=== PATIENT | female | born 1990 | race American Indian/Alaskan Native ===

== ENCOUNTER 2016-09-28 12:15 | Emergency (ER) | payer SELFPAY ==
[2016-09-28 13:04] VITALS: BP 102/61
--- NOTE | 2016-09-28 15:28 | XRay Report ---
FINAL REPORT EXAM: XR ANKLE 3 RT HISTORY: injury to right ankle TECHNIQUE: AP, lateral, and oblique views of the right ankle PRIORS: None. FINDINGS: There is no evidence for acute fracture or dislocation. There is mild soft tissue swelling over the lateral malleolus. No radiopaque foreign bodies are seen. The ankle mortise is intact. Bony mineralization is normal and joint spaces are maintained. IMPRESSION: No acute bony abnormality noted. Mild soft tissue swelling over the lateral malleolus.
[2016-09-28] MEDS ORDERED: MOTRIN PO ONE (16:50)
[2016-09-28] MEDS ORDERED: NORCO 5/325 PO ONE (16:50)
--- NOTE | 2016-09-28 19:47 | Emergency Department Report ---
Entered by CRISTI PHILLIPS, acting as scribe for GINO HADLEY PA. ED Extremity Problem HPI - General Chief complaint: Extremity Injury, Lower Stated complaint: POSS SPRAIN RT ANKLE Time Seen by Provider: 09/28/16 15:09 Source: patient Mode of arrival: Wheelchair Limitations: No Limitations - History of Present Illness Initial comments: 25 y/o female presents c/o sharp, throbbing, 6/10 pain to the right ankle as a result of an inward rotation injury from a fall that occurred while playing basketball yesterday. Denies fever, N/V, shortness of breath, abdominal pain or chest pain. Denies numbness, weakness, paresthesias. Pain is 10/10 with movement and pt has no previous Hx of injuries to the right ankle. No additional Sx MD Complaint: extremity pain -: days(s) (1) Location: other (right ankle) History of Same: No Radiation: none Severity scale (0 -10): 6 Quality: sharp, other (throbbing) Consistency: constant Improves with: nothing Worsens with: other (movement) Associated Symptoms: other (numbness in toes, denies abd pain or N/V). denies: chest pain, fever - Related Data Previous Rx's Medication Instructions Recorded Last Taken Type Naproxen [Naprosyn] 500 mg PO BID #30 tablet 09/28/16 Unknown Rx Allergies Allergy/AdvReac Type Severity Reaction Status Date / Time No Known Allergies Allergy Unverified 09/28/16 13:00 ED Review of Systems Comment: All other systems reviewed and negative Constitutional: denies: chills, fever Respiratory: denies: shortness of breath Cardiovascular: denies: chest pain Gastrointestinal: denies: abdominal pain, nausea, vomiting Neurological: numbness ED Past Medical Hx - Past Medical History Previous Medical History?: No - Surgical History Past Surgical History?: No - Social History Smoking Status: Current Every Day Smoker Substance Use Type: Alcohol, Marijuana - Medications Home Medications: Home Medications Medication Instructions Recorded Confirmed Last Taken Type Naproxen [Naprosyn] 500 mg PO BID #30 tablet 09/28/16 Unknown Rx ED Physical Exam - General Limitations: No Limitations - Other Other exam information: GENERAL: The patient is well-developed and well-nourished. Patient is in NAD. HEAD: Normocephalic. Atraumatic. CHEST/LUNGS: Clear to auscultation throughout. HEART/CARDIOVASCULAR: Regular rate and rhythm. No murmurs, rubs or gallops. ABDOMEN: Abdomen is soft, nontender. Bowel sounds normoactive. No guarding or rebound tenderness. LEFT ANKLE: Limited range of motion due to pain. Tenderness to palpation over lateral aspect of the left ankle. No deformity or crepitus noted. Positive for minimal edema over the lateral aspect of the left ankle. Normal sensation. Peripheral pulses intact. Capillary refill less than 2 seconds. NEURO: Alert and oriented x 3. ED Course Vital Signs 09/28/16 13:00 Temperature 98.4 F Pulse Rate 66 Respiratory 20 Rate Blood Pressure 102/61 O2 Sat by Pulse 100 Oximetry ED Medical Decision Making - Lab Data Vital Signs 09/28/16 13:00 Temperature 98.4 F Pulse Rate 66 Respiratory 20 Rate Blood Pressure 102/61 O2 Sat by Pulse 100 Oximetry - Radiology Data Radiology results: report reviewed EXAM: XR ANKLE 3 RT HISTORY: injury to right ankle TECHNIQUE: AP, lateral, and oblique views of the right ankle PRIORS: None. FINDINGS: There is no evidence for acute fracture or dislocation. There is mild soft tissue swelling over the lateral malleolus. No radiopaque foreign bodies are seen. The ankle mortise is intact. Bony mineralization is normal and joint spaces are maintained. IMPRESSION: No acute bony abnormality noted. Mild soft tissue swelling over the lateral malleolus. - Medical Decision Making 25 y/o female presents c/o sharp, throbbing, 6/10 pain to the right ankle as a result of a fall that occurred while playing basketball yesterday. Her x-ray results reveal no fracture or dislocation. Patient has been provided with appropriate for orthopedic. Patient is in no acute distress at this time. She will be discharged home and is encouraged to follow up with a primary care provider. She will be sent home on Naprosyn and is encouraged to return to the emergency room for any worsening symptoms. ED Disposition Clinical Impression: Ankle pain Qualifiers: Laterality: left Chronicity: acute Qualified Code(s): M25.572 - Pain in left ankle and joints of left foot Disposition: DISCHARGED TO HOME OR SELFCARE Is pt being admited?: No Does the pt Need Aspirin: No Condition: Stable Instructions: Ankle Sprain (ED), Ankle Exercises (GEN) Additional Instructions: Follow-up with primary care provider and orthopedic. Return to the emergency department if symptoms worsen. Prescriptions: Naproxen [Naprosyn] 500 mg PO BID #30 tablet Referrals: PRIMARY MD KRISTA [Primary Care Provider] - 3-5 Days CHASE AYALA MD [Staff Physician] - 3-5 Days Forms: Work/School Release Form(ED) Time of Disposition: 16:56 This documentation as recorded by the ALAN simms RYAN,accurately reflects the service I personally performed and the decisions made by JOMAR knox NATASHA, PA.
== END 2016-09-28 17:51 | disposition home or self-care (01) ==
LOC: ED 12:15
DX: M25.571 Pain in right ankle and joints of right foot (principal); F17.200 Nicotine dependence, unspecified, uncomplicated; F12.10 Cannabis abuse, uncomplicated
CPT/HCPCS: 99284

== ENCOUNTER 2017-10-29 17:17 | Emergency (ER) | payer SELFPAY ==
[2017-10-29 18:00] VITALS: BP 90/54
--- NOTE | 2017-10-29 19:20 | XRay Report ---
FINAL REPORT EXAM: XR FINGER(S) 2+V RT HISTORY: PINKY FINGER INJURY/POSS DISLOCATION TECHNIQUE: Right 5th finger three views PRIORS: None. FINDINGS: No fracture is identified. The joint spaces are within normal limits. No focal bony lesion identified. No radiopaque foreign body seen. There is soft tissue swelling at the base of the 5th finger. IMPRESSION: Soft tissue swelling No acute bony abnormality
== END 2017-10-29 20:40 | disposition left against medical advice (07) ==
LOC: ED 17:17
DX: M79.89 Other specified soft tissue disorders (principal); Z53.21 Procedure and treatment not carried out due to patient leaving prior to being seen by health care provider

== ENCOUNTER 2019-09-09 04:19 | Emergency (ER) | payer SELFPAY ==
[2019-09-09 04:29] VITALS: BP 107/55
--- NOTE | 2019-09-09 05:04 | XRay Report ---
LEFT KNEE 3 VIEW(S) INDICATION / CLINICAL INFORMATION: pain/swelling COMPARISON: None available. FINDINGS: Curvilinear artifacts relate to the patient's clothing. BONES / JOINT(S): No acute fracture or subluxation. No significant arthritis. Small joint effusion in the suprapatellar recess. SOFT TISSUES: Mild anterior soft tissue swelling. ADDITIONAL FINDINGS: None. Signer Name: Elba Serrato MD Signed: 09/09/2019 5:00 AM Workstation Name: [id number]
[2019-09-09] MEDS ORDERED: IBUPROFEN 800 MG TAB PO ONE (05:09)
--- NOTE | 2019-09-09 05:15 | Emergency Department Report ---
ED Lower Extremity HPI - General Chief Complaint: Extremity Injury, Lower Stated Complaint: POSS DISLOCATED LF KNEE Time Seen by Provider: 09/09/19 04:58 Source: patient Mode of arrival: Ambulatory Limitations: No Limitations - History of Present Illness Initial Comments: This is a 28-year-old female presents the ED complaining of left anterior knee pain and swelling that began today. Around 5 PM today, Patient states that she was playing basketball when she accidentally hit another player and felt her knee buckle and pop out of place. Patient states that pain is localized to the anterior aspect she noticed some swelling that began shortly after that. Patient states pain is worsened with applied pressure to that leg. She denies any laceration bruising to the knee. MD Complaint: knee injury - Related Data Previous Rx's Medication Instructions Recorded Last Taken Type Naproxen [Naprosyn] 500 mg PO BID #30 tablet 09/28/16 Unknown Rx Ibuprofen [Motrin 800 MG tab] 800 mg PO ONCE #30 tablet 09/09/19 Unknown Rx methOCARBAMOL [Robaxin TAB] 500 mg PO BID #30 tab 09/09/19 Unknown Rx Allergies Allergy/AdvReac Type Severity Reaction Status Date / Time No Known Allergies Allergy Unverified 09/28/16 13:00 ED Review of Systems ROS: Stated complaint: POSS DISLOCATED LF KNEE Other details as noted in HPI Comment: All other systems reviewed and negative ED Past Medical Hx - Past Medical History Previous Medical History?: No - Surgical History Past Surgical History?: No - Social History Smoking Status: Current Every Day Smoker Substance Use Type: Marijuana - Medications Home Medications: Home Medications Medication Instructions Recorded Confirmed Last Taken Type Naproxen [Naprosyn] 500 mg PO BID #30 tablet 09/28/16 Unknown Rx Ibuprofen [Motrin 800 MG tab] 800 mg PO ONCE #30 tablet 09/09/19 Unknown Rx methOCARBAMOL [Robaxin TAB] 500 mg PO BID #30 tab 09/09/19 Unknown Rx ED Physical Exam - General Limitations: No Limitations General appearance: alert, in no apparent distress - Head Head exam: Present: atraumatic, normocephalic - Eye Eye exam: Present: normal appearance - ENT ENT exam: Present: mucous membranes moist - Neck Neck exam: Present: normal inspection - Respiratory Respiratory exam: Present: normal lung sounds bilaterally. Absent: respiratory distress - Cardiovascular Cardiovascular Exam: Present: regular rate, normal rhythm. Absent: systolic murmur, diastolic murmur, rubs, gallop - GI/Abdominal GI/Abdominal exam: Present: soft, normal bowel sounds - Extremities Exam Extremities exam: Present: normal inspection - Expanded Lower Extremity Exam Left Hip exam: Present: normal inspection, full ROM Upper Leg exam: Present: normal inspection, full ROM Knee exam: Present: tenderness (To palpation of the anterior medial aspect of the knee), swelling, effusion, pain w/ pronation/supination, full knee extension. Absent: abrasion, laceration, ecchymosis Lower Leg exam: Present: normal inspection, full ROM. Absent: tenderness, swelling Ankle exam: Present: normal inspection, full ROM. Absent: tenderness, swelling Foot/Toe exam: Present: normal inspection, full ROM Neuro vascular tendon exam: Present: no vascular compromise Gait: Positive: observed and limited by pain - Back Exam Back exam: Present: normal inspection - Neurological Exam Neurological exam: Present: alert, oriented X3 - Psychiatric Psychiatric exam: Present: normal affect, normal mood - Skin Skin exam: Present: warm, dry, intact, normal color. Absent: rash ED Course Vital Signs 09/09/19 04:24 Temperature 99.5 F Pulse Rate 94 H Respiratory 20 Rate Blood Pressure 107/55 O2 Sat by Pulse 97 Oximetry ED Lower Extremity MDM - Radiology Data Radiology results: report reviewed, image reviewed LEFT KNEE 3 VIEW(S) INDICATION / CLINICAL INFORMATION: pain/swelling COMPARISON: None available. FINDINGS: Curvilinear artifacts relate to the patient's clothing. BONES / JOINT(S): No acute fracture or subluxation. No significant arthritis. Small joint effusion in the suprapatellar recess. SOFT TISSUES: Mild anterior soft tissue swelling. ADDITIONAL FINDINGS: None. Signer Name: Elba Serrato MD Signed: 09/09/2019 5:00 AM Workstation Name: [id number] Transcribed By: DT Dictated By: Caleb Serrato MD Electronically Authenticated By: Caleb Serrato MD Signed Date/Time: 09/09/19 0500 - Medical Decision Making 28-year-old female presents with knee pain secondary to injury. X-ray shows no acute fractures but shows a mild joint effusion, see report above Patient Jorge bandage compression to the knee. Discussed rice protocol with patient. Discussed with patient most likely sprained knee but can have possible ligament tear or injury. Discussed with patient to follow-up with orthopedic doctor Critical care attestation.: If time is entered above; I have spent that time in minutes in the direct care of this critically ill patient, excluding procedure time. ED Disposition Clinical Impression: Sprain of left knee, Left anterior knee pain Disposition: TO HOME OR SELFCARE Is pt being admited?: No Does the pt Need Aspirin: No Condition: Stable Instructions: Arthralgia (ED), Knee Effusion (ED), Knee Sprain (ED), RICE Therapy (ED) Additional Instructions: Make sure to follow up with the primary care physician as discussed. Take all your medications as you've been prescribed. If you have any worsening symptoms or develop new symptoms please return to ED immediately. Prescriptions: Ibuprofen [Motrin 800 MG tab] 800 mg PO ONCE #30 tablet methOCARBAMOL [Robaxin TAB] 500 mg PO BID #30 tab Referrals: PRIMARY CARE, [Primary Care Provider] - 3-5 Days [facility] [Provider Group] - 3-5 Days [facility] [Provider Group] - 3-5 Days Forms: Work/School Release Form(ED) Time of Disposition: 05:18
== END 2019-09-09 05:30 | disposition home or self-care (01) ==
LOC: ED 04:19
DX: S83.92XA Sprain of unspecified site of left knee, initial encounter (principal); F17.200 Nicotine dependence, unspecified, uncomplicated; W51.XXXA Accidental striking against or bumped into by another person, initial encounter; Y93.67 Activity, basketball; Y99.8 Other external cause status; Y92.89 Other specified places as the place of occurrence of the external cause
CPT/HCPCS: 99284